=== PATIENT | female | born 1970 | race Caucasian/White ===

== ENCOUNTER 2021-07-15 13:39 | Emergency (ER) | payer OTHER ==
[~2021-07-15] VITALS: Ht 162.6 cm; Wt 60.1 kg
[2021-07-15 16:45] LABS: BASO # 0.1 10^3/uL (0.0-0.2); BASO % 0.9 % (0.0-1.0); EOS # 0.2 10^3/uL (0.0-0.5); EOS % 1.5 % (0.0-3.0); HEMATOCRIT 45.3 % (36.0-47.0); HEMOGLOBIN 15.1 g/dl (12.0-15.5); LYMPH # 1.7 10^3/uL (1.5-5.0); LYMPH % 15.8 % (24.0-44.0); MEAN CORPUSCULAR HEMOGLOBIN 31.1 pg (27.0-33.0); MEAN CORPUSCULAR HGB CONC 33.3 g/dl (32.0-36.5); MEAN CORPUSCULAR VOLUME 93.4 fl (80.0-96.0); MONO # 0.5 10^3/uL (0.0-0.8); MONO % 4.8 % (2.0-8.0); NEUTROPHILS # 8.1 10^3/uL (1.5-8.5); NEUTROPHILS % 76.6 % (36.0-66.0); PLATELET COUNT, AUTOMATED 355 10^3/uL (150-450); RED BLOOD COUNT 4.85 10^6/uL (4.00-5.40); WHITE BLOOD COUNT 10.6 10^3/uL (4.0-10.0)
[2021-07-15 17:19] LABS: ALBUMIN 4.2 GM/DL (3.2-5.2); ALT/SGPT 23 U/L (12-78); BILIRUBIN,DIRECT 0.2 MG/DL (0.0-0.2); BILIRUBIN,TOTAL 0.6 MG/DL (0.2-1.0); BLOOD UREA NITROGEN 19 MG/DL (7-18); CALCIUM LEVEL 9.3 MG/DL (8.5-10.1); CARBON DIOXIDE LEVEL 31 MEQ/L (21-32); CHLORIDE LEVEL 106 MEQ/L (98-107); CREATININE FOR GFR 0.88 MG/DL (0.55-1.30); GLOMERULAR FILTRATION RATE > 60.0 (>51); GLUCOSE, FASTING 93 MG/DL (70-100); LIPASE 109 U/L (73-393); SODIUM LEVEL 138 MEQ/L (136-145); TOTAL PROTEIN 7.6 GM/DL (6.4-8.2)
[2021-07-15 19:55] LABS: INFLUENZA A AMPLIFICATION NEGATIVE (NEGATIVE); INFLUENZA B AMPLIFICATION NEGATIVE (NEGATIVE)
[2021-07-15] MEDS ORDERED: ONDA4TAB6 PO (20:14)
[2021-07-15 20:18] VITALS: BP 132/65
== END 2021-07-15 20:19 | disposition home or self-care (01) ==
LOC: M ED 13:39
DX: A08.4 Viral intestinal infection, unspecified (principal); R05.9 Cough, unspecified; J02.9 Acute pharyngitis, unspecified

== ENCOUNTER 2022-08-28 12:57 | Emergency (ER) | payer OTHER ==
[~2022-08-28] VITALS: Ht 162.6 cm; Wt 61.6 kg
[~2022-08-28 12:57] MED LIST: ONDA4TAB6 PO
[2022-08-28] MEDS ORDERED: ACET-683 PO (13:06)
[2022-08-28] MEDS ORDERED: IBUP200T46 PO (13:06)
[2022-08-28] MEDS ORDERED: tiZANidine 4 MG TAB PO ONE (13:30)
[2022-08-28] MEDS ORDERED: TIZA4CAP PO (14:23)
[2022-08-28 14:26] VITALS: BP 114/79; TEMP 98.7; O2SAT 100
== END 2022-08-28 14:48 | disposition home or self-care (01) ==
LOC: M ED 12:57
DX: M62.830 Muscle spasm of back (principal)